=== PATIENT | male | born 1975 | race Caucasian/White ===

== ENCOUNTER 2021-03-17 16:24 | Emergency (ER) | payer MEDICAID ==
[~2021-03-17] VITALS: Ht 167.6 cm; Wt 73.0 kg
[2021-03-17 16:28] VITALS: BP 148/80
== END 2021-03-17 22:00 | disposition left against medical advice (07) ==
LOC: ER 16:24
DX: Z53.21 Procedure and treatment not carried out due to patient leaving prior to being seen by health care provider (principal)

== ENCOUNTER 2021-10-01 02:27 | Emergency (ER) | payer MEDICAID ==
[~2021-10-01] VITALS: Ht 157.5 cm; Wt 61.0 kg
[2021-10-01 03:30] VITALS: BP 149/81
[2021-10-01] MEDS ORDERED: CEPHALEXIN 250MG CAPSULE PO ONE (03:45)
[2021-10-01] MEDS ORDERED: CEPH500C2 MT (05:24)
== END 2021-10-01 06:09 | disposition home or self-care (01) ==
LOC: ER 02:27
DX: S71.112A Laceration without foreign body, left thigh, initial encounter (principal); S70.12XA Contusion of left thigh, initial encounter; X58.XXXA Exposure to other specified factors, initial encounter; Y93.89 Activity, other specified; Y92.89 Other specified places as the place of occurrence of the external cause
CPT/HCPCS: 99283